=== PATIENT | male | born 1955 | race Caucasian/White ===

== ENCOUNTER 2024-07-14 11:42 | Observation (INO) ==
[2024-07-14 12:13] LABS: Hemoglobin 15.2 g/dL (13.2-16.3); INR 1.46 (0.85-1.14); Mean Corpuscular Hemoglobin 30.5 pg (27-33); Mean Corpuscular Hgb Conc 33.7 g/dL (31-36); Mean Corpuscular Volume 90.6 fL (80-97); Mean Platelet Volume 9.2 fL (7.5-11.2); Platelet Count 455 10^3/uL (150-450); Red Blood Count 4.97 10^6/uL (4.06-5.63); Red Cell Distribution Width 14.7 % (12-17); White Blood Count 10.4 10^3/uL (3.6-10.2)
[2024-07-14 12:38] LABS: Albumin/Globulin Ratio 1.4 (1-3); Calcium 9.3 mg/dL (8.6-10.3); Creatinine, Serum 0.78 mg/dL (0.67-1.17); Globulin 2.8 g/dL (2-4); Potassium 4.5 mmol/L (3.5-5.0); Total Bilirubin 0.8 mg/dL (0.2-1.0); Total Protein 6.8 g/dL (6.4-8.9); eGFR CKD-EPI 96.5 (>60)
[2024-07-14 13:01] LABS: ABS Basophils 0.1 10^3/uL (0.0-0.1); ABS Eosinophils 0.2 10^3/uL (0.0-0.5); ABS Lymphocytes 5.1 10^3/uL (1.0-4.8); ABS Nucleated RBC 0.01 10^3/ul; Eosinophil % 2.3 %; Lymphocyte % 48.6 %; Nucleated Red Blood Cells % 0.1 %/100WBC (0.0-0.8); RBC Morphology Normal (Normal)
[2024-07-14 14:02] LABS: High Sensitivity Troponin 1 Hr 3 pg/mL (<20)
[2024-07-14] MEDS ORDERED: Al Hydrox/Mg Hydrox/Simet LIQ 30 ML UDC PO PRN (17:25)
[2024-07-14] MEDS ORDERED: Albuterol HFA INHALER 8 gm MDI INH PRN (17:27)
[2024-07-14] MEDS ORDERED: Calcium Carb (TUMS) 500 mg CHEW TAB PO PRN (17:27)
[2024-07-15] MEDS ORDERED: Regadenoson 0.4 MG/5 ML SYRINGE ONE (12:47)
[2024-07-15] MEDS ORDERED: Aminophylline 25 MG/ML VIAL ONE (12:47)
[2024-07-18] MEDS: Magnesium Hydroxide LIQ 30 ML UDC PO PRN (00:02)
[2024-07-18] MEDS: Polyethylene Glycol 3350 17 GM PACKET PO PRN (00:02)
[2024-07-18] MEDS: Senna TAB 8.6 mg TAB PO PRN (00:03)
[2024-07-18 09:38] VITALS: BP 134/91
== END 2024-07-18 11:15 ==
LOC: EDHOLD 11:42 → ED 11:42 → SUATTDRO 17:25 → MEDTELE 21:00
PROVIDERS: ADMIT Internal Medicine; ATTEND Student in an Organized Health Care Education/Training Program